=== PATIENT | female | born 1965 | race Hispanic/Latino ===

== ENCOUNTER 2017-06-09 08:38 | Observation (INO) | payer OTHER ==
--- NOTE | 2017-06-09 08:57 | ED PDOC ---
Arrival/HPI - General Chief Complaint: Chest Pain Time Seen by Provider: 06/09/17 08:52 Historian: Patient - History of Present Illness Narrative History of Present Illness (Text): 06/09/17 08:57 A 51 year old female, whose past medical history includes gallstones, presents to the emergency department complaining of intermittent upper abdominal pain for 1 week. Patient reports her pain worsened this morning causing her to come in for further evaluation. Patient describes her pain as a stretching sensation , worsened after eating. Patient notes associated diarrhea and abdominal bloating x few weeks. Patient states this pain would radiate to her lower chest from her mid abdomen today. Denies upper back pain. States pain will also radiate to right back at times. Time/Duration: 1 week Symptom Course: Worsening (this morning) Quality: Other (stretching) Context: Home Past Medical History - Infectious Disease Hx of Infectious Diseases: None - Tetanus Immunization Tetanus Immunization: Unknown - Past Medical History Past Medical History: No Previous - Musculoskeletal/Rheumatological Hx Arthritis: Yes Other/Comment: myalgia - Psychiatric Hx Depression: No Hx Emotional Abuse: No Hx Physical Abuse: No Hx Substance Use: No - Past Surgical History Past Surgical History: No Previous - Surgical History Hx Section: Yes (x3) - Anesthesia Hx Anesthesia: Yes Hx Anesthesia Reactions: No Hx Malignant Hyperthermia: No - Suicidal Assessment Feels Threatened In Home Enviroment: No Family/Social History - Physician Review Nursing Documentation Reviewed: Yes Family/Social History: No Known Family HX Smoking Status: Light Smoker < 10 Cigarettes Daily Hx Alcohol Use: Yes Frequency of alcohol use: Socially Hx Substance Use: No Hx Substance Use Treatment: No Allergies/Home Meds Allergies/Adverse Reactions: Allergies codeine Allergy (Verified 06/09/17 08:50) SWELLING Sulfa (Sulfonamide Antibiotics) Allergy (Verified 06/09/17 08:50) ANAPHYLAXIS Review of Systems - Review of Systems Constitutional: absent: Fatigue, Fevers, Night Sweats Eyes: absent: Vision Changes ENT: absent: Hearing Changes Respiratory: absent: SOB, Cough Cardiovascular: Chest Pain. absent: Palpitations, Edema, Calf Pain, MORFIN Gastrointestinal: Abdominal Pain, Diarrhea, Nausea, Appetite Changes, Other ( abdominal bloating). absent: Vomiting Genitourinary Female: absent: Dysuria, Frequency Musculoskeletal: Back Pain (right sided, not upper or mid) Skin: absent: Rash Neurological: absent: Headache, Dizziness, Focal Weakness Endocrine: absent: Polyuria, Polydipsia Hemo/Lymphatic: absent: Easy Bleeding Psychiatric: absent: Depression Physical Exam - Physical Exam Narrative Physical Exam (Text): Head: Atraumatic. Normocephalic. Eyes: PERRL. EOMI. Conjunctivae are not pale. ENT: Mucous membranes are moist and intact. Oropharynx is clear and symmetric. Neck: Supple. Full ROM. No JVD. No lymphadenopathy. Neck is supple. Cardiovascular: Regular rate. Regular rhythm. No murmurs, rubs, or gallops. Distal pulses are 2+ and symmetric. Radial pulses are equal and symmetric. Pulmonary/Chest: No evidence of respiratory distress. Clear to auscultation bilaterally. No wheezing, rales or rhonchi. Abdominal: Soft butmild distended. Diffuse upper abdominal pain with focal epigastric and RUQ tenderness. No rebound, guarding, or rigidity. No organomegaly. Good bowel sounds. Rectal: no gross bleeding Back: No CVA tenderness. No midline tenderness. No palpable back pain. Extremities: No edema. No cyanosis. No clubbing. Full range of motion in all extremities. No calf tenderness. Skin: Skin is warm and dry. No petechiae. Neurological: Alert, awake, and oriented to person, place, time, and situation. Normal speech. Motor and sensory exam intact. Psychiatric: Good eye contact. Normal interaction, affect, and behavior. Vital Signs Reviewed: Yes Vital Signs Temp Pulse Resp BP Pulse Ox 06/09/17 11:50 77 17 144/66 97 06/09/17 10:56 85 18 133/110 H 98 06/09/17 08:45 98.6 F 86 19 186/95 H 100 Temperature: Afebrile Blood Pressure: Hypertensive Pulse: Regular Respiratory Rate: Normal Appearance: Positive for: Non-Toxic, Uncomfortable Pain Distress: Moderate Mental Status: Positive for: Alert and Oriented X 3 Medical Decision Making ED Course and Treatment: 06/09/17 08:57 Impression: A 51 year old female with upper abdominal pain. Patient notes abdominal bloating and diarrhea. Differential Diagnosis included but are not limited to: Biliary colic vs. Bowel obstruction vs. Colitis vs. CAD Plan: -- Abdominal ultrasound -- Chest xray -- EKG -- Labs -- Blood and Urine culture -- Urinalysis -- Morphine, Pepcid, IV fluids and Zofran -- Reassess and disposition Progress Notes: Patient states she has had history of gallstones in past. On exam she has clearly palpable epigastric pain, RUQ pain. No lower quadrant pain is noted. She reports some loose stools. She states pain radiated to chest, but no intrascapular back pain, upper extremity pulses equal. Given persistent pain in abdomen, surgery consulted for ddx of biliary colic, gi pathology. Pain improved with morphine. EKG unremarkable. Initial card isos unremarkable. Patient on re-evaluation denies chest pain or sob. She states pain is not worse with exertion or activity. Report Date : 06/09/2017 10:14:11 Procedure: Chest xray Dictator : Elida Short IMPRESSION: Cardiomegaly with borderline prominent central pulmonary vascular congestion. No pleural effusions. Report Date : 06/09/2017 11:29:05 Procedure: Abdominal ultrasound Dictator : Orville Calderón MD IMPRESSION: Hepatomegaly, hepatic steatosis. No acute findings. Given persistent pain, ct abdomen ordered and reviewed. No free air or appendicitis noted. Pain continues to be palpable in mid abdomen, epigastric region. Dr. Oleary from [facility] consulted due to persistent pain. BP improved after medication. I feel palpable nature of pain associated with bloating is atypical for cardiac etiology, although d/w family and patient cannot exclude atypical cardiac presentation and will admit to telemetry bed for serial exams, monitoring, serial enzymes. Case accepted by hospitalist, accepts admission. 06/09/17 18:35 - Lab Interpretations Microbiology Results: Microbiology Results 06/09/17 09:31 Blood Blood Culture - Preliminary NO GROWTH AFTER 48 HOURS 06/09/17 09:01 Blood Blood Culture - Preliminary NO GROWTH AFTER 48 HOURS 06/09/17 09:10 Urine Urine Culture - Final Gram Negative Flex Lab Results: 06/09/17 09:01 06/09/17 09:01 Lab Results 06/09/17 09:10: Urine Color Yellow, Urine Appearance Clear, Urine pH 6.0, Ur Specific [place] 1.025, Urine Protein 100 H, Urine Glucose (UA) Negative, Urine Ketones Trace H, Urine Blood Large H, Urine Nitrate Negative, Urine Bilirubin Negative, Urine Urobilinogen 0.2, Ur Leukocyte Esterase Negative, Urine RBC 25 - 30, Urine WBC 1 - 3, Ur Epithelial Cells Many, Urine Bacteria Large, Urine Other Uyeast, Urine HCG, Qual Negative 06/09/17 09:01: Sodium 141, Chloride 106, Potassium 4.2, Carbon Dioxide 24, Anion Gap 14, BUN 18, Creatinine 0.7, Est GFR ( Amer) > 60, Est GFR (Non- Af Amer) > 60, Random Glucose 160 H, Calcium 8.8, Total Bilirubin 0.3, AST 109 H , ALT 132 H, Alkaline Phosphatase 80, Lactate Dehydrogenase 709 H, Total Creatine Kinase 183, Troponin I < 0.01, Total Protein 7.6, Albumin 4.3, Globulin 3.3, Albumin/Globulin Ratio 1.3, Amylase 36, Lipase 145 06/09/17 09:01: pO2 167 H, VBG pH 7.38, VBG pCO2 43.0, VBG HCO3 25.4, VBG Total CO2 26.7, VBG O2 Sat (Calc) 99.4 H, VBG Base Excess 0.0, VBG Potassium 4.2, Sodium 137.0, Chloride 109.0 H, Glucose 164 H, Lactate 1.4, FiO2 21.0, Venous Blood Potassium 4.2 06/09/17 09:01: PT 11.0, INR 1.00, APTT 28.3 06/09/17 09:01: WBC 7.6 D, RBC 4.32, Hgb 13.8, Hct 41.0, MCV 94.9, MCH 31.9, MCHC 33.7, RDW 12.7, Plt Count 187, MPV 12.1 H, Gran % 68.8 H, Lymph % (Auto) 22.4, [place] % (Auto) 5.8, Eos % (Auto) 2.5, Baso % (Auto) 0.5, Gran # 5.21, Lymph # 1.7, [place] # 0.4, Eos # 0.2, Baso # 0.04 - RAD Interpretation Radiology Orders: 06/09/17 09:00 CHEST PORTABLE [RAD] Stat ABDOMEN COMPLETE [US] Stat 06/09/17 11:39 ABD & PELVIS IV CONTRAST ONLY [CT] Stat - Medication Orders Current Medication Orders: Discontinued Medications Alprazolam (Xanax) 0.5 mg PO TID PRN; Protocol PRN Reason: Anxiety Last Admin: 06/10/17 08:57 Dose: 0.5 mg Behavioural Document 06/10/17 08:57 (Rec: 06/10/17 08:57 [id number]) Maintenance Maintenance Dose Yes Behavior Behavior for Medication: Anxiety Re-Assess: Reassess Psych Meds Document 06/10/17 09:57 (Rec: 06/10/17 10:27 [id number]) Reassess Psych Med Effective Famotidine (Pepcid) 20 mg IVP STAT STA Stop: 06/09/17 09:03 Last Admin: 06/09/17 09:25 Dose: 20 mg IVP Administration Document 06/09/17 09:25 MR (Rec: 06/09/17 09:25 MR [id number]) Charges for Administration # of IVP Administrations 1 Sodium Chloride (Sodium Chloride 0.9%) 500 mls @ 1,000 mls/hr IV .Q30M STA Stop: 06/09/17 09:31 Last Admin: 06/09/17 09:26 Dose: 1,000 mls/hr eMAR Start Stop Document 06/09/17 09:26 MR (Rec: 06/09/17 09:26 MR [id number]) Intravenous Solution Start Date 06/09/17 Start Time 09:26 End Date 06/09/17 End time 09:56 Total Infusion Time 30 Ceftriaxone Sodium (Rocephin 1 Gram Ivpb) 1 gm in 100 mls @ 200 mls/hr IVPB ONCE STA PRN Reason: Protocol Stop: 06/09/17 12:10 Last Admin: 06/09/17 12:11 Dose: 200 mls/hr eMAR Start Stop Document 06/09/17 12:11 ARIELA (Rec: 06/09/17 12:11 REED [id number]) Intravenous Solution Start Date 06/09/17 Start Time 12:11 Metronidazole (Flagyl) 500 mg in 100 mls @ 100 mls/hr IVPB STAT STA PRN Reason: Protocol Stop: 06/09/17 12:40 Last Admin: 06/09/17 14:10 Dose: 100 mls/hr eMAR Start Stop Document 06/09/17 14:10 RT (Rec: 06/09/17 14:10 RT [id number]) Intravenous Solution Start Date 06/09/17 Start Time 14:10 End Date 06/09/17 End time 15:10 Total Infusion Time 60 Morphine Sulfate (Morphine) 2 mg IVP STAT STA Stop: 06/09/17 09:03 Last Admin: 06/09/17 09:25 Dose: 2 mg MAR Pain Assessment Document 06/09/17 09:25 MR (Rec: 06/09/17 09:26 MR [id number]) Pain Reassessment Is this a pain reassessment? No Sleep Is patient sleeping during reassessment? No Presence of Pain Presence of Pain Yes Pain Scale Used Pain Scale Used Numeric Location Pain Location Body Site Chest Abdomen Description Description Constant Intensity of Pain at present 8 Pain Behavior Facial Grimacing Alleviating Factors/Management Medication Techniques Alleviating Factors Medication IVP Administration Document 06/09/17 09:25 (Rec: 06/09/17 09:26 MR [id number]) Charges for Administration # of IVP Administrations 1 Morphine Sulfate (Morphine) 4 mg IVP STAT STA Stop: 06/09/17 09:45 Last Admin: 06/09/17 10:14 Dose: 4 mg MAR Pain Assessment Document 06/09/17 10:14 MR (Rec: 06/09/17 10:14 MR [id number]) Pain Reassessment Is this a pain reassessment? Yes Sleep Is patient sleeping during reassessment? No Presence of Pain Presence of Pain Yes Pain Scale Used Pain Scale Used Numeric Location Upper or Lower Upper Pain Location Body Site Abdomen Description Description Constant Intensity of Pain at present 8 Pain Behavior Facial Grimacing IVP Administration Document 06/09/17 10:14 MR (Rec: 06/09/17 10:14 MR [id number]) Charges for Administration # of IVP Administrations 1 Morphine Sulfate (Morphine) 2 mg IVP STAT STA Stop: 06/09/17 11:54 Last Admin: 06/09/17 12:15 Dose: 2 mg MAR Pain Assessment Document 06/09/17 12:15 ARIELA (Rec: 06/09/17 13:06 ARIELA CADECANDIAPC ) Pain Reassessment Is this a pain reassessment? Yes Sleep Is patient sleeping during reassessment? No Presence of Pain Presence of Pain Yes IVP Administration Document 06/09/17 12:15 ARILEA (Rec: 06/09/17 13:06 ARIELA CADECANDIAPC ) Charges for Administration # of IVP Administrations 1 Morphine Sulfate (Morphine) 2 mg IVP Q6H PRN PRN Reason: Pain, moderate (4-7) Last Admin: 06/09/17 23:56 Dose: 2 mg MAR Pain Assessment Document 06/09/17 23:56 SBO (Rec: 06/09/17 23:57 [id number]) Pain Reassessment Is this a pain reassessment? Yes Sleep Is patient sleeping during reassessment? No Presence of Pain Presence of Pain Yes Pain Scale Used Pain Scale Used Numeric Location Pain Location Body Drying And Winding Supervisor Abdomen Description Description Intermittent Intensity of Pain at present 10 Pain Behavior Irritability Alleviating Factors/Management Medication Techniques Alleviating Factors Medication IVP Administration Document 06/09/17 23:56 SBO (Rec: 06/09/17 23:57 SBO [id number]) Charges for Administration # of IVP Administrations 1 Re-Assess: MAR Pain Assessment Document 06/10/17 00:56 SB (Rec: 06/10/17 04:26 SBO [id number]) Pain Reassessment Is this a pain reassessment? Yes Sleep Is patient sleeping during reassessment? Yes Naproxen (Anaprox Ds) 550 mg PO BID PRN PRN Reason: abdominal pain Last Admin: 06/10/17 10:35 Dose: 550 mg Ondansetron HCl (Zofran Inj) 4 mg IVP ONCE ONE Stop: 06/09/17 09:03 Last Admin: 06/09/17 09:25 Dose: 4 mg IVP Administration Document 06/09/17 09:25 MR (Rec: 06/09/17 09:25 MR [id number]) Charges for Administration # of IVP Administrations 1 Ondansetron HCl (Zofran Inj) 4 mg IVP Q6 PRN PRN Reason: Nausea/Vomiting Last Admin: 06/10/17 08:00 Dose: 4 mg IVP Administration Document 06/10/17 08:00 (Rec: 06/10/17 08:01 [id number]) Charges for Administration # of IVP Administrations 1 Pantoprazole Sodium (Protonix Inj) 40 mg IVP DAILY POLO Last Admin: 06/10/17 10:30 Dose: 40 mg IVP Administration Document 06/10/17 10:30 (Rec: 06/10/17 10:30 [id number]) Charges for Administration # of IVP Administrations 1 Pneumococcal Polyvalent Vaccine (Pneumovax 23 Vaccine) 0.5 ml IM .ONCE ONE Stop: 06/09/17 18:13 - Scribe Statement The provider has reviewed the documentation as recorded by the Scribe Amina Stanton Provider Scribe Attestation: All medical record entries made by the Scribe were at my direction and personally dictated by me. I have reviewed the chart and agree that the record accurately reflects my personal performance of the history, physical exam, medical decision making, and the department course for this patient. I have also personally directed, reviewed, and agree with the discharge instructions and disposition. Disposition/Present on Arrival - Present on Arrival Any Indicators Present on Arrival: No History of DVT/PE: No History of Uncontrolled Diabetes: No Urinary Catheter: No History of Decub. Ulcer: No History Surgical Site Infection Following: None - Disposition Have Diagnosis and Disposition been Completed?: Yes Diagnosis: Abdominal pain, Chest pain Disposition: HOSPITALIZED Disposition Time: 11:00 Patient Plan: Admission, Telemetry Condition: FAIR
[2017-06-09] MEDS ORDERED: Sodium Chloride 0.9% 500 ML IV STA (09:02)
[2017-06-09] MEDS ORDERED: Morphine 2 mg/ml ISec IVP STA ×2 (09:02→11:53)
[2017-06-09 09:28] LABS: URINE BILIRUBIN NEGATIVE (NEGATIVE); URINE BLOOD LARGE (NEGATIVE); URINE GLUCOSE (UA) NEGATIVE (NEGATIVE); URINE KETONE TRACE mg/dL (NEGATIVE); URINE LEUKOCYTE ESTERASE NEGATIVE Leu/uL (NEGATIVE); URINE PROTEIN 100 mg/dL (<30 mg/dL); URINE UROBILINOGEN 0.2 E.U./dL (<1 E.U./dL)
[2017-06-09 09:30] LABS: URINE APPEARANCE CLEAR (CLEAR); URINE COLOR YELLOW (YELLOW)
[2017-06-09 09:36] LABS: BASO # 0.04 K/mm3 (0.0-2.0); BASO % 0.5 % (0.0-3.0); EOS # 0.2 (0.0-0.7); EOS % 2.5 % (1.5-5.0); GRAN # 5.21 (1.4-6.5); GRAN % 68.8 % (50.0-68.0); LYMPH # 1.7 (1.2-3.4); LYMPH % 22.4 % (22.0-35.0); MEAN CELL VOLUME 94.9 fl (80.0-105.0); MEAN CORPUSCULAR HEMOGLOBIN 31.9 pg (25.0-35.0); MEAN CORPUSCULAR HGB CONC 33.7 g/dl (31.0-37.0); MEAN PLATELET VOLUME 12.1 fl (7.0-11.0); MONO # 0.4 (0.1-0.6); MONO % 5.8 % (1.0-6.0); RED CELL DISTRIBUTION WIDTH 12.7 % (11.5-14.5); WHITE BLOOD COUNT 7.6 10^3/ul (4.5-11.0)
[2017-06-09 09:37] LABS: VENOUS BLOOD PH 7.38 (7.32-7.43)
[2017-06-09 09:42] LABS: URINE BACTERIA LARGE (NEG); URINE EPITHELIAL CELLS MANY /hpf (0-5); URINE RBC 25 - 30 /hpf (0-2)
[2017-06-09] MEDS ORDERED: Morphine 4 mg/ml ISec IVP STA (09:44)
[2017-06-09 09:46] LABS: PARTIAL THROMBOPLASTIN TIME 28.3 Seconds (25.1-36.5)
[2017-06-09 09:54] LABS: ALB/GLOB RATIO 1.3 (1.1-1.8); ALKALINE PHOSPHATASE 80 U/L (38-126); ALT/SGPT 132 U/L (7-56); AMYLASE 36 U/L (35-125); AST/SGOT 109 U/L (14-36); BILIRUBIN,TOTAL 0.3 mg/dL (0.2-1.3); BLOOD UREA NITROGEN 18 mg/dL (7-21); CALCIUM 8.8 mg/dL (8.4-10.5); CARBON DIOXIDE 24 mmol/L (21-33); CHLORIDE 106 mmol/L (98-107); GFR AFRICAN-AMERICAN > 60; GLUCOSE,RANDOM 160 mg/dL (70-110); LIPASE 145 U/L (23-300); POTASSIUM 4.2 mmol/L (3.6-5.0); SODIUM 141 mmol/L (132-148); TOTAL PROTEIN 7.6 g/dL (5.8-8.3)
[2017-06-09 09:57] LABS: TROPONIN I < 0.01 ng/mL
--- NOTE | 2017-06-09 10:17 | RAD ---
HISTORY: chest pain COMPARISON: No prior. FINDINGS: LUNGS: No active pulmonary disease. PLEURA: No significant pleural effusion identified, no pneumothorax apparent. CARDIOVASCULAR: Mild cardiomegaly. Central pulmonary vasculature borderline prominent OSSEOUS STRUCTURES: Bilateral shoulder arthrosis VISUALIZED UPPER ABDOMEN: Normal. OTHER FINDINGS: None. IMPRESSION: Cardiomegaly with borderline prominent central pulmonary vascular congestion no pleural effusions
--- NOTE | 2017-06-09 11:30 | US ---
HISTORY: upper abdominal pain COMPARISON: None. TECHNIQUE: Sonographic evaluation of the abdomen. FINDINGS: LIVER: Measures 22.8 cm. Hepatopedal blood flow. Fatty infiltration manifest ultrasonographically as increased echogenicity of the liver parenchyma. No mass. No intrahepatic bile duct dilatation. GALLBLADDER: Unremarkable. No gallstones. COMMON BILE DUCT: Measures 6.3 mm. No stones. No dilatation. PANCREAS: Unremarkable as visualized. No mass. No ductal dilatation. RIGHT KIDNEY: Measures 5.2 x 11.9cm. Normal echogenicity. No calculus, mass, or hydronephrosis. LEFT KIDNEY: Measures 5.1 x 11.8cm. Normal echogenicity. No calculus, mass, or hydronephrosis. SPLEEN: Normal in size and contour. No mass. AORTA: No aneurysmal dilatation. IVC: Unremarkable. OTHER FINDINGS: None. IMPRESSION: Hepatomegaly, hepatic steatosis. No acute findings.
[2017-06-09] MEDS ORDERED: cefTRIAXone 1 gm 1 GM/100 ML BAG IVPB STA (11:41)
[2017-06-09] MEDS ORDERED: metroNIDAZOLE IV 500 mg/100 ml 500 MG/100 ML BAG IVPB STA (11:41)
[2017-06-09] MEDS ORDERED: Iohexol 350 MG/100 ML VIAL ONE (11:49)
--- NOTE | 2017-06-09 12:53 | CP.PCM.CON ---
<Carlita Cobian - Last Filed: 06/09/17 17:18> History of Present Illness - History of Present Illness History of Present Illness: Surgery 51 F w PMH of cholelithiasis came w RUQ and epigastric pain started 3 weeks ago. Intermittent Pain goes to her R back and gotten worse. Denies F/C/N/V. Reports diarrhea. Denies recent travel, sick contact, recent antibiotic use. Pt had these symptoms in the past. This is the third episodes. Denies any bleeding disorder, issues with anesthesia. US shows gallbladder sludge. and elevated LFT. Surgery is consulted to evaluate for cholelithiasis PMH : biliary colic PSH: C-secton x3. Meds none All: sulfa, codein Past Patient History - Infectious Disease Hx of Infectious Diseases: None - Tetanus Immunizations Tetanus Immunization: Unknown - Past Social History Smoking Status: Light Smoker < 10 Cigarettes Daily - MUSCULOSKELETAL/RHEUMATOLOGICAL Hx Arthritis: Yes Other/Comment: myalgia - PSYCHIATRIC Hx Depression: No Hx Emotional Abuse: No Hx Physical Abuse: No Hx Substance Use: No - SURGICAL HISTORY Hx Section: Yes (x3) - ANESTHESIA Hx Anesthesia: Yes Hx Anesthesia Reactions: No Hx Malignant Hyperthermia: No Meds Allergies/Adverse Reactions: Allergies Allergy/AdvReac Type Severity Reaction Status Date / Time codeine Allergy SWELLING Verified 06/09/17 08:50 Sulfa (Sulfonamide Allergy ANAPHYLAXIS Verified 06/09/17 08:50 Antibiotics) Physical Exam - Constitutional Appears: No Acute Distress - Head Exam Head Exam: ATRAUMATIC, NORMAL INSPECTION, NORMOCEPHALIC - Eye Exam Eye Exam: EOMI, Normal appearance, PERRL Pupil Exam: NORMAL ACCOMODATION, PERRL - ENT Exam ENT Exam: Mucous Membranes Moist, Normal Exam - Neck Exam Neck exam: Positive for: Normal Inspection - Respiratory Exam Respiratory Exam: Clear to Auscultation Bilateral, NORMAL BREATHING PATTERN - Cardiovascular Exam Cardiovascular Exam: REGULAR RHYTHM - GI/Abdominal Exam GI & Abdominal Exam: Normal Bowel Sounds, Soft, Tenderness. absent: Distended, Firm, Guarding, Hernia Additional comments: RUQ TTP - Extremities Exam Extremities exam: Positive for: normal inspection - Back Exam Back exam: NORMAL INSPECTION - Neurological Exam Neurological exam: Alert, CN II-XII Intact, Normal Gait, Oriented x3, Reflexes Normal - Psychiatric Exam Psychiatric exam: Normal Affect, Normal Mood - Skin Skin Exam: Dry, Intact, Normal Color, Warm Results - Vital Signs Recent Vital Signs: Last Vital Signs Temp 98.6 F 06/09/17 08:45 Pulse 77 06/09/17 11:50 Resp 17 06/09/17 11:50 BP 144/66 06/09/17 11:50 Pulse Ox 97 06/09/17 11:50 - Labs Result Diagrams: 06/09/17 09:01 06/09/17 09:01 Assessment & Plan - Assessment and Plan (Free Text) Assessment: Biliary colic v symptomatic cholelithiasis -f/u HIDA -IVF -Pain control DW Dr. Oleary <James Oleary - Last Filed: 06/10/17 10:58> Meds - Medications Medications: Current Medications Alprazolam (Xanax) 0.5 mg PO TID PRN; Protocol PRN Reason: Anxiety Last Admin: 06/10/17 08:57 Dose: 0.5 mg Morphine Sulfate (Morphine) 2 mg IVP Q6H PRN PRN Reason: Pain, moderate (4-7) Last Admin: 06/09/17 23:56 Dose: 2 mg Naproxen (Anaprox Ds) 550 mg PO BID PRN PRN Reason: abdominal pain Last Admin: 06/10/17 10:35 Dose: 550 mg Ondansetron HCl (Zofran Inj) 4 mg IVP Q6 PRN PRN Reason: Nausea/Vomiting Last Admin: 06/10/17 08:00 Dose: 4 mg Pantoprazole Sodium (Protonix Inj) 40 mg IVP DAILY POLO Last Admin: 06/10/17 10:30 Dose: 40 mg Results - Vital Signs Recent Vital Signs: Last Vital Signs Temp 97.9 F 06/10/17 06:00 Pulse 72 06/10/17 06:00 Resp 20 06/10/17 06:00 BP 148/94 H 06/10/17 06:00 Pulse Ox 98 06/10/17 06:00 - Labs Result Diagrams: 06/10/17 05:30 06/10/17 05:30 Labs: Laboratory Results - last 24 hr 06/09/17 06/09/17 06/09/17 15:25 15:25 15:44 WBC RBC Hgb Hct MCV MCH MCHC RDW Plt Count MPV Gran % Lymph % (Auto) [place] % (Auto) Eos % (Auto) Baso % (Auto) Gran # Lymph # [place] # Eos # Baso # Sodium Potassium Chloride Carbon Dioxide Anion Gap BUN Creatinine Est GFR ( Amer) Est GFR (Non-Af Amer) Random Glucose Calcium Total Bilirubin AST ALT Alkaline Phosphatase Lactate Dehydrogenase 617 Total Creatine Kinase 175 Troponin I < 0.01 Total Protein Albumin Globulin Albumin/Globulin Ratio Triglycerides Cholesterol LDL Cholesterol Direct HDL Cholesterol Urine Opiates Screen Positive H Urine Methadone Screen Negative Ur Barbiturates Screen Negative Ur Phencyclidine Scrn Negative Ur Amphetamines Screen Negative U Benzodiazepines Scrn Negative U Oth Cocaine Metabols Negative U Cannabinoids Screen Negative Alcohol, Quantitative Hepatitis A IgM Ab Negative Hep Bs Antigen Negative Hep B Core IgM Ab Negative Hepatitis C Antibody Negative 06/09/17 06/09/17 06/10/17 21:25 21:25 05:30 WBC 7.6 RBC 3.93 Hgb 12.2 Hct 37.8 MCV 96.2 MCH 31.0 MCHC 32.3 RDW 12.8 Plt Count 163 MPV 12.0 H Gran % 62.5 Lymph % (Auto) 28.3 [place] % (Auto) 5.9 Eos % (Auto) 2.9 Baso % (Auto) 0.4 Gran # 4.75 Lymph # 2.2 [place] # 0.5 Eos # 0.2 Baso # 0.03 Sodium Potassium Chloride Carbon Dioxide Anion Gap BUN Creatinine Est GFR ( Amer) Est GFR (Non-Af Amer) Random Glucose Calcium Total Bilirubin AST ALT Alkaline Phosphatase Lactate Dehydrogenase 598 Total Creatine Kinase 152 Troponin I < 0.01 Total Protein Albumin Globulin Albumin/Globulin Ratio Triglycerides Cholesterol LDL Cholesterol Direct HDL Cholesterol Urine Opiates Screen Urine Methadone Screen Ur Barbiturates Screen Ur Phencyclidine Scrn Ur Amphetamines Screen U Benzodiazepines Scrn U Oth Cocaine Metabols U Cannabinoids Screen Alcohol, Quantitative < 10 Hepatitis A IgM Ab Hep Bs Antigen Hep B Core IgM Ab Hepatitis C Antibody 06/10/17 05:30 WBC RBC Hgb Hct MCV MCH MCHC RDW Plt Count MPV Gran % Lymph % (Auto) [place] % (Auto) Eos % (Auto) Baso % (Auto) Gran # Lymph # [place] # Eos # Baso # Sodium 138 Potassium 4.0 Chloride 104 Carbon Dioxide 27 Anion Gap 11 BUN 13 Creatinine 0.6 L Est GFR ( Amer) > 60 Est GFR (Non-Af Amer) > 60 Random Glucose 126 H Calcium 8.2 L Total Bilirubin 0.4 AST 107 H ALT 114 H Alkaline Phosphatase 63 Lactate Dehydrogenase Total Creatine Kinase Troponin I Total Protein 6.6 Albumin 3.6 Globulin 3.0 Albumin/Globulin Ratio 1.2 Triglycerides 221 H Cholesterol 249 H LDL Cholesterol Direct 192 H HDL Cholesterol 40 Urine Opiates Screen Urine Methadone Screen Ur Barbiturates Screen Ur Phencyclidine Scrn Ur Amphetamines Screen U Benzodiazepines Scrn U Oth Cocaine Metabols U Cannabinoids Screen Alcohol, Quantitative Hepatitis A IgM Ab Hep Bs Antigen Hep B Core IgM Ab Hepatitis C Antibody Assessment & Plan - Assessment and Plan (Free Text) Assessment: DX: NOT Cholecystitis/NO Cholelithiasis HIDA Early GB Viz Hepatitis profile Negative Etiology of RUQ tenderness unclear Syed: GI Evaluation with EGD-?EUS Holding off surgery now This consultation done under my direct supervision Anjel Oleary MD FACS
--- NOTE | 2017-06-09 12:55 | CT ---
PROCEDURE: CT Abdomen and Pelvis with contrast HISTORY: severe right sided abdominal pain COMPARISON: June 07, 2017. Abdominal ultrasound TECHNIQUE: Contrast dose: 100 cc Omnipaque 350 Radiation dose: Total exam DLP = 1022.70 mGy-cm. This CT exam was performed using one or more of the following dose reduction techniques: Automated exposure control, adjustment of the mA and/or kV according to patient size, and/or use of iterative reconstruction technique. FINDINGS: LOWER THORAX: Unremarkable. LIVER: Hepatomegaly, hepatic steatosis. No focal hepatic masses. GALLBLADDER AND BILE DUCTS: Unremarkable. PANCREAS: Unremarkable. No gross lesion or ductal dilatation. SPLEEN: Unremarkable. ADRENALS: Unremarkable. No mass. KIDNEYS AND URETERS: Unremarkable. No hydronephrosis. No solid mass. VASCULATURE: Unremarkable. No aortic aneurysm. BOWEL: Severe diverticular disease affecting the sigmoid and descending colon in addition to the right hemicolon. Transverse colon is affected to a lesser degree. APPENDIX: Normal appendix. PERITONEUM: Unremarkable. No free fluid. No free air. LYMPH NODES: Unremarkable. No enlarged lymph nodes. BLADDER: Unremarkable. REPRODUCTIVE: Unremarkable. BONES: No acute fracture. Multilevel degenerative changes, grade 1 anterolisthesis L5-S1. OTHER FINDINGS: None. IMPRESSION: No acute findings related to/accounting for the clinical presentation. Severe diverticular disease.
--- NOTE | 2017-06-09 15:31 | CP.PCM.HP ---
<Nadine Bautista - Last Filed: 06/09/17 15:37> History of Present Illness - History of Present Illness History of Present Illness: PGY-2 h&p for hospitalist service 51 year old female with past medical history of gallstones and smoking, presents to the emergency department complaining of intermittent right upper abdominal pain for 1 week. Patient describes the pain as sharp, needle like, radiating to the chest and right side. She states that her pain was worsen this morning causing her to come in to the ED. She states that she does not notice a pattern and does not believe it is associated with eating. She report nausea but no vomiting. She also reports some diarrhea and abdominal bloating x few weeks. 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 Patient does not take any medications at home, she was given lyrica in the past for neuropathy but has not been taking it due to insurance. Patient denies any fever, chills, vomiting, shortness of breath or any other complaints. She reports previous episode of gallstone several years back, stating that she does not recall any intervention. PMH: gallstone PSH: social: smokes few cigarettes daily, social alcohol use, denies illicit drug use. Works in [employer]: diabetes allergy: codeine, sulfa Present on Admission - Present on Admission Any Indicators Present on Admission: No Review of Systems - Constitutional Constitutional: absent: Fever, Headache, Weakness - Cardiovascular Cardiovascular: Chest Pain. absent: Palpitations, Syncope - Respiratory Respiratory: absent: Cough, Dyspnea - Gastrointestinal Gastrointestinal: Abdominal Pain, Diarrhea, Nausea. absent: Vomiting - Musculoskeletal Musculoskeletal: absent: Back Pain, Myalgias, Neck Pain - Neurological Neurological: absent: Focal Weakness, Headaches, Syncope - Psychiatric Psychiatric: Anxiety. absent: Depression, Suicidal Ideation Past Patient History - Infectious Disease Hx of Infectious Diseases: None - Tetanus Immunizations Tetanus Immunization: Unknown - Past Social History Smoking Status: Light Smoker < 10 Cigarettes Daily - MUSCULOSKELETAL/RHEUMATOLOGICAL Hx Arthritis: Yes Other/Comment: myalgia - PSYCHIATRIC Hx Depression: No Hx Emotional Abuse: No Hx Physical Abuse: No Hx Substance Use: No - SURGICAL HISTORY Hx Section: Yes (x3) - ANESTHESIA Hx Anesthesia: Yes Hx Anesthesia Reactions: No Hx Malignant Hyperthermia: No Meds Allergies/Adverse Reactions: Allergies Allergy/AdvReac Type Severity Reaction Status Date / Time codeine Allergy SWELLING Verified 06/09/17 08:50 Sulfa (Sulfonamide Allergy ANAPHYLAXIS Verified 06/09/17 08:50 Antibiotics) Physical Exam - Constitutional Appears: No Acute Distress - Head Exam Head Exam: ATRAUMATIC, NORMAL INSPECTION, NORMOCEPHALIC - Eye Exam Eye Exam: EOMI, Normal appearance - ENT Exam ENT Exam: Mucous Membranes Moist - Respiratory Exam Respiratory Exam: Clear to Auscultation Bilateral, NORMAL BREATHING PATTERN. absent: Rhonchi, Wheezes, Respiratory Distress - Cardiovascular Exam Cardiovascular Exam: REGULAR RHYTHM, +S1, +S2. absent: Tachycardia, Systolic Murmur - GI/Abdominal Exam GI & Abdominal Exam: Normal Bowel Sounds, Tenderness (ruq). absent: Distended - Neurological Exam Neurological exam: Alert, CN II-XII Intact, Oriented x3, Reflexes Normal - Psychiatric Exam Psychiatric exam: Anxious - Skin Skin Exam: Dry, Intact, Normal Color, Warm Results - Vital Signs Recent Vital Signs: Last Vital Signs Temp 98.6 F 06/09/17 08:45 Pulse 77 06/09/17 11:50 Resp 17 06/09/17 11:50 BP 144/66 06/09/17 11:50 Pulse Ox 97 06/09/17 11:50 - Labs Result Diagrams: 06/09/17 09:01 06/09/17 09:01 Assessment & Plan - Assessment and Plan (Free Text) Assessment: 51 year old female with past medical history of gallstones and smoking, presents to the emergency department complaining of intermittent upper right abdominal, radiating to chest and ride side 1. abd pain - possibly due to cholecystitis vs. ulcer, rule out ACS - abd US did not show any gall stones, hepatomegaly - CT abd showed severe divericular disease - LFT's were elevated, lipase and amylase within normal limits - troponins negative x1 - ordered hepatits panel - repeat LFTs - trend troponins - lipid panel - morphine for pain - will hold antibiotics for know, no fever, or leukocytosis - liquid diet - avoid hepatic toxic medications - GI consulted - surgery consulted 2. anxious - xanax prn - social media manager consult - offered psych consult, patient refused case discussed and reviewed with attending, Dr. Sewell <Vashti Sewell - Last Filed: 06/09/17 16:21> Results - Vital Signs Recent Vital Signs: Last Vital Signs Temp 98.6 F 06/09/17 08:45 Pulse 77 06/09/17 11:50 Resp 17 06/09/17 11:50 BP 144/66 06/09/17 11:50 Pulse Ox 97 06/09/17 11:50 - Labs Result Diagrams: 06/09/17 09:01 06/09/17 09:01 Labs: Laboratory Results - last 24 hr 06/09/17 06/09/17 15:25 15:44 Lactate Dehydrogenase 617 Total Creatine Kinase 175 Troponin I < 0.01 Urine Methadone Screen Negative Ur Barbiturates Screen Negative Ur Phencyclidine Scrn Negative Ur Amphetamines Screen Negative U Benzodiazepines Scrn Negative U Oth Cocaine Metabols Negative U Cannabinoids Screen Negative Attending/Attestation - Attestation I have personally seen and examined this patient.: Yes I have fully participated in the care of the patient.: Yes I have reviewed all pertinent clinical information: Yes Notes (Text): 06/09/17 16:15 51 year old female who presents with complaint of RUQ and epigastric pain radiating to her chest. R/o biliary colic vs cholecystitis vs peptic ulcer disease vs atypical chest pain. US abdomen showed hepatomegaly without gallstones. CT abd/pelvis showed severe diverticular disease. LFTs are elevated. Amylase/lipase and initial troponin is negative. Surgery evaluation was appreciated. GI evaluation is requested. Will trend liver and cardiac enzymes. Hepatitis panel, alcohol level and urine drug screen is ordered. Patient was very anxious and agitated upon arrival to floor. Wanted to leave AMA but later decided to stay. Offered social media manager or psychiatry evaluation which she refused. Vashti Sewell MD Hospitalist.
[2017-06-09 15:53] LABS: TROPONIN I < 0.01 ng/mL
[2017-06-09] MEDS: Morphine 2 mg/ml ISec IVP PRN ×2 (17:41→23:56)
[2017-06-09 18:12] VITALS: BMI 34.2
[2017-06-09] MEDS ORDERED: Pneumococcal 23-Valent Vaccine IM ONE (18:12)
[2017-06-09] MEDS ORDERED: Influenza Vaccine 60 mcg/0.5 mL SYR (4YR UP) IM ONE (18:12)
[2017-06-09 21:55] LABS: TROPONIN I < 0.01 ng/mL
[2017-06-10 06:11] VITALS: O2SAT 98
[2017-06-10 07:03] LABS: ALB/GLOB RATIO 1.2 (1.1-1.8); ALKALINE PHOSPHATASE 63 U/L (38-126); ALT/SGPT 114 U/L (7-56); AST/SGOT 107 U/L (14-36); BILIRUBIN,TOTAL 0.4 mg/dL (0.2-1.3); BLOOD UREA NITROGEN 13 mg/dL (7-21); CALCIUM 8.2 mg/dL (8.4-10.5); CARBON DIOXIDE 27 mmol/L (21-33); CHLORIDE 104 mmol/L (98-107); CHOLESTEROL 249 mg/dL (130-200); GFR AFRICAN-AMERICAN > 60; GLUCOSE,RANDOM 126 mg/dL (70-110); SODIUM 138 mmol/L (132-148); TOTAL PROTEIN 6.6 g/dL (5.8-8.3)
[2017-06-10 07:19] LABS: BASO # 0.03 K/mm3 (0.0-2.0); BASO % 0.4 % (0.0-3.0); EOS # 0.2 (0.0-0.7); EOS % 2.9 % (1.5-5.0); GRAN # 4.75 (1.4-6.5); GRAN % 62.5 % (50.0-68.0); HEMATOCRIT 37.8 % (36.0-48.0); LYMPH # 2.2 (1.2-3.4); LYMPH % 28.3 % (22.0-35.0); MEAN CELL VOLUME 96.2 fl (80.0-105.0); MEAN CORPUSCULAR HGB CONC 32.3 g/dl (31.0-37.0); MONO # 0.5 (0.1-0.6); MONO % 5.9 % (1.0-6.0); RED CELL DISTRIBUTION WIDTH 12.8 % (11.5-14.5); WHITE BLOOD COUNT 7.6 10^3/ul (4.5-11.0)
[2017-06-10] MEDS ORDERED: Naproxen 550 mg Tab PO PRN (09:33)
--- NOTE | 2017-06-10 09:53 | CARD ---
APPROVED REPORT EKG Measurement Heart [id number] <Conclusion> Normal sinus rhythm LVH Small q in lll T waves flatter c/w ECG 12/25/13
--- NOTE | 2017-06-10 09:54 | CP.PCM.PN ---
Subjective - Date & Time of Evaluation Date of Evaluation: 06/10/17 Time of Evaluation: 07:15 - Subjective Subjective: General Surgery- Dr. Oleary Patient seen and examined at bedside this AM. No acute events overnight. Still has some nausea. Continued RUQ pain w/ deep palpation. denies fevers, chills, chest pain, shortness of breath, vomiting, diarrhea. Objective - Vital Signs/Intake and Output Vital Signs (last 24 hours): Temp Pulse Resp BP Pulse Ox 97.9 F 72 20 148/94 H 98 06/10/17 06:00 06/10/17 06:00 06/10/17 06:00 06/10/17 06:00 06/10/17 06:00 Intake and Output: 06/10/17 06/10/17 06:59 18:59 Intake Total 580 Balance 580 - Medications Medications: Current Medications Alprazolam (Xanax) 0.5 mg PO TID PRN; Protocol PRN Reason: Anxiety Last Admin: 06/10/17 08:57 Dose: 0.5 mg Morphine Sulfate (Morphine) 2 mg IVP Q6H PRN PRN Reason: Pain, moderate (4-7) Last Admin: 06/09/17 23:56 Dose: 2 mg Naproxen (Anaprox Ds) 550 mg PO BID PRN PRN Reason: abdominal pain Ondansetron HCl (Zofran Inj) 4 mg IVP Q6 PRN PRN Reason: Nausea/Vomiting Last Admin: 06/10/17 08:00 Dose: 4 mg Pantoprazole Sodium (Protonix Inj) 40 mg IVP DAILY POLO - Labs Labs: 06/10/17 05:30 06/10/17 05:30 PT 11.0 SECONDS (9.4-12.5) 06/09/17 09:01 INR 1.00 (0.93-1.08) 06/09/17 09:01 APTT 28.3 Seconds (25.1-36.5) 06/09/17 09:01 - Constitutional Appears: Non-toxic, No Acute Distress - Head Exam Head Exam: ATRAUMATIC - Eye Exam Eye Exam: EOMI. absent: Scleral icterus - ENT Exam ENT Exam: Mucous Membranes Moist - Respiratory Exam Respiratory Exam: NORMAL BREATHING PATTERN. absent: Accessory Muscle Use, Respiratory Distress - Cardiovascular Exam Cardiovascular Exam: +S1, +S2. absent: Bradycardia, Tachycardia - GI/Abdominal Exam GI & Abdominal Exam: Soft, Tenderness. absent: Distended, Firm, Guarding, Rigid Additional comments: tender in RUQ - Extremities Exam Extremities Exam: Normal Inspection. absent: Calf Tenderness - Neurological Exam Neurological Exam: Alert, Awake, Oriented x3 - Psychiatric Exam Psychiatric exam: Normal Affect - Skin Skin Exam: Intact, Warm Assessment and Plan - Assessment and Plan (Free Text) Assessment: 52F RUQ pain biliary colic; negative HIDA Plan: - not cholecystitis - no acute surgical intervention at this time - can plan for surgery at a later date - GI Dr. Che is on board; GI recs appreciated - further recs per Dr. Oleary surgical attending Delio Wray PGY1
[2017-06-10 12:04] VITALS: BP 157/96; PULSE 64; RESP 18; TEMP 98.1
--- NOTE | 2017-06-10 12:30 | CON ---
DATE: 06/10/2017 GASTROENTEROLOGY CONSULTATION REQUESTING PHYSICIAN: Dr. Sewell REASON FOR CONSULTATION: I have been asked to see this 52-year-old female who comes to the hospital with several days of right upper quadrant abdominal pain radiating around the flank to the back and over the last 24 hours, radiating to the chest. This prompted her to come to the Emergency Room. HISTORY OF PRESENT ILLNESS: The patient denies any heartburn, nausea, or vomiting. She denies any palpitations or shortness of breath. She denies any relationship of the pain to meals. She describes the pain as a sharp, stabbing pain in the right upper quadrant radiating to the flank. She denies any fevers or chills. There is a question as to whether the patient has a history of gallstones. Abdominal ultrasound was negative for gallstones. CT scan of the abdomen and pelvis revealed hepatomegaly with steatosis and diverticulosis. No masses were seen in the liver. Kidneys were normal. PAST MEDICAL HISTORY: Again is notable for a question of gallstones. PAST SURGICAL HISTORY: Notable for . SOCIAL HISTORY: She smokes less than half pack of cigarettes per day. She consumes alcohol on a social basis. FAMILY HISTORY: Notable for diabetes mellitus. REVIEW OF SYSTEMS: A 14-point review of systems is notable for right upper quadrant abdominal pain and flank pain radiating to the chest. MEDICATIONS: At home are unknown. ALLERGIES: SHE IS ALLERGIC TO CODEINE AND SULFA. PHYSICAL EXAMINATION: GENERAL: An obese female lying in bed in no acute distress. BMI is 37.5. VITAL SIGNS: Reveal temperature of 97.9, blood pressure of 148/94, and heart rate of 72. HEENT: Reveal sclerae to be white. Conjunctivae are pink. NECK: Supple. CHEST: Lungs are clear. CARDIOVASCULAR: Heart exam reveals regular rate and rhythm. GASTROINTESTINAL: Abdomen is obese, soft, and nontender. EXTREMITIES: Show no edema. LABORATORY DATA: Revealed white blood cell count of 7.6 and hemoglobin of 12.2. Chemistries revealed AST of 107, ALT of 114, and alkaline phosphatase is normal. Total bilirubin is normal. Triglycerides of 221 and cholesterol of 249. Amylase and lipase are normal. IMPRESSION: This is a 52-year-old female with several days of right upper quadrant abdominal pain, most recently radiating to the chest. The ultrasound of the abdomen was negative for gallstones. CT scan did show an enlarged liver and steatosis. Her hepatobiliary scan is negative for cystic duct obstruction. I reviewed all these x-rays myself. I suspect that her pain is due to either hepatomegaly with stretching of the liver capsule or possibly musculoskeletal in etiology. RECOMMENDATIONS: 1. We will advance to a low-fat diet given her hyperlipidemia. 2. Trial of naproxen 375 mg twice a day with PPI. The patient is stable from GI and no further GI workup is planned at this time. Danyel Vega MD
--- NOTE | 2017-06-10 12:47 | CP.PCM.DIS ---
<Tiana Kent - Last Filed: 06/10/17 16:07> Provider - Provider Date of Admission: 06/09/17 12:01 Attending physician: Vashti Sewell MD Consults: GI - Dr. Vega Surgery - Dr. Oleary Time Spent in preparation of Discharge (in minutes): 40 Diagnosis - Discharge Diagnosis (1) Abdominal pain Status: Resolved Comment: Abdominal Pain that radiated to Chest resolved. Hospital Course - Lab Results Lab Results: Most Recent Lab Values WBC 7.6 10^3/ul (4.5-11.0) 06/10/17 05:30 RBC 3.93 10^6/uL (3.5-6.1) 06/10/17 05:30 Hgb 12.2 g/dL (12.0-16.0) 06/10/17 05:30 Hct 37.8 % (36.0-48.0) 06/10/17 05:30 MCV 96.2 fl (80.0-105.0) 06/10/17 05:30 MCH 31.0 pg (25.0-35.0) 06/10/17 05:30 MCHC 32.3 g/dl (31.0-37.0) 06/10/17 05:30 RDW 12.8 % (11.5-14.5) 06/10/17 05:30 Plt Count 163 10^3/uL (120.0-450.0) 06/10/17 05:30 MPV 12.0 fl (7.0-11.0) H 06/10/17 05:30 Gran % 62.5 % (50.0-68.0) 06/10/17 05:30 Lymph % (Auto) 28.3 % (22.0-35.0) 06/10/17 05:30 Pierce % (Auto) 5.9 % (1.0-6.0) 06/10/17 05:30 Eos % (Auto) 2.9 % (1.5-5.0) 06/10/17 05:30 Baso % (Auto) 0.4 % (0.0-3.0) 06/10/17 05:30 Gran # 4.75 (1.4-6.5) 06/10/17 05:30 Lymph # 2.2 (1.2-3.4) 06/10/17 05:30 Pierce # 0.5 (0.1-0.6) 06/10/17 05:30 Eos # 0.2 (0.0-0.7) 06/10/17 05:30 Baso # 0.03 K/mm3 (0.0-2.0) 06/10/17 05:30 PT 11.0 SECONDS (9.4-12.5) 06/09/17 09:01 INR 1.00 (0.93-1.08) 06/09/17 09:01 APTT 28.3 Seconds (25.1-36.5) 06/09/17 09:01 pO2 167 mm/Hg (30-55) H 06/09/17 09:01 VBG pH 7.38 (7.32-7.43) 06/09/17 09:01 VBG pCO2 43.0 (40-60) 06/09/17 09:01 VBG HCO3 25.4 mmol/l (21-28) 06/09/17 09:01 VBG Total CO2 26.7 mmol.L (22-28) 06/09/17 09:01 VBG O2 Sat (Calc) 99.4 % (40-65) H 06/09/17 09:01 VBG Base Excess 0.0 mmol/L (0.0-2.0) 06/09/17 09:01 VBG Potassium 4.2 mmol/L (3.6-5.2) 06/09/17 09:01 Sodium 137.0 mmol/L (132-148) 06/09/17 09:01 Chloride 109.0 mmol/L (98-107) H 06/09/17 09:01 Glucose 164 mg/dl (65-105) H 06/09/17 09:01 Lactate 1.4 mmol/L (0.7-2.1) 06/09/17 09:01 FiO2 21.0 % 06/09/17 09:01 Sodium 138 mmol/L (132-148) 06/10/17 05:30 Potassium 4.0 mmol/L (3.6-5.0) 06/10/17 05:30 Chloride 104 mmol/L (98-107) 06/10/17 05:30 Carbon Dioxide 27 mmol/L (21-33) 06/10/17 05:30 Anion Gap 11 (10-20) 06/10/17 05:30 BUN 13 mg/dL (7-21) 06/10/17 05:30 Creatinine 0.6 mg/dl (0.7-1.2) L 06/10/17 05:30 Est GFR ( Amer) > 60 06/10/17 05:30 Est GFR (Non-Af Amer) > 60 06/10/17 05:30 Random Glucose 126 mg/dL (70-110) H 06/10/17 05:30 Calcium 8.2 mg/dL (8.4-10.5) L 06/10/17 05:30 Total Bilirubin 0.4 mg/dL (0.2-1.3) 06/10/17 05:30 AST 107 U/L (14-36) H 06/10/17 05:30 ALT 114 U/L (7-56) H 06/10/17 05:30 Alkaline Phosphatase 63 U/L (38-126) 06/10/17 05:30 Lactate Dehydrogenase 598 U/L (333-699) 06/09/17 21:25 Total Creatine Kinase 152 U/L (35-230) 06/09/17 21:25 Troponin I < 0.01 ng/mL 06/09/17 21:25 Total Protein 6.6 g/dL (5.8-8.3) 06/10/17 05:30 Albumin 3.6 g/dL (3.0-4.8) 06/10/17 05:30 Globulin 3.0 gm/dL 06/10/17 05:30 Albumin/Globulin Ratio 1.2 (1.1-1.8) 06/10/17 05:30 Triglycerides 221 mg/dL (35-160) H 06/10/17 05:30 Cholesterol 249 mg/dL (130-200) H 06/10/17 05:30 LDL Cholesterol Direct 192 mg/dL (0-129) H 06/10/17 05:30 HDL Cholesterol 40 mg/dL (29-60) 06/10/17 05:30 Amylase 36 U/L (35-125) 06/09/17 09:01 Lipase 145 U/L (23-300) 06/09/17 09:01 Venous Blood Potassium 4.2 mmol/L (3.6-5.2) 06/09/17 09:01 Urine Color Yellow (YELLOW) 06/09/17 09:10 Urine Appearance Clear (CLEAR) 06/09/17 09:10 Urine pH 6.0 (4.7-8.0) 06/09/17 09:10 Ur Specific [place] 1.025 (1.005-1.035) 06/09/17 09:10 Urine Protein 100 mg/dL (<30 mg/dL) H 06/09/17 09:10 Urine Glucose (UA) Negative mg/dL (NEGATIVE) 06/09/17 09:10 Urine Ketones Trace mg/dL (NEGATIVE) H 06/09/17 09:10 Urine Blood Large (NEGATIVE) H 06/09/17 09:10 Urine Nitrate Negative (NEGATIVE) 06/09/17 09:10 Urine Bilirubin Negative (NEGATIVE) 06/09/17 09:10 Urine Urobilinogen 0.2 E.U./dL (<1 E.U./dL) 06/09/17 09:10 Ur Leukocyte Esterase Negative [place]/uL (NEGATIVE) 06/09/17 09:10 Urine RBC 25 - 30 /hpf (0-2) 06/09/17 09:10 Urine WBC 1 - 3 /hpf (0-6) 06/09/17 09:10 Ur Epithelial Cells Many /hpf (0-5) 06/09/17 09:10 Urine Bacteria Large (NEG) 06/09/17 09:10 Urine Other Uyeast 06/09/17 09:10 Urine HCG, Qual Negative (NEGATIVE) 06/09/17 09:10 Urine Opiates Screen Positive (NEGATIVE) H 06/09/17 15:44 Urine Methadone Screen Negative (NEGATIVE) 06/09/17 15:44 Ur Barbiturates Screen Negative (NEGATIVE) 06/09/17 15:44 Ur Phencyclidine Scrn Negative (NEGATIVE) 06/09/17 15:44 Ur Amphetamines Screen Negative (NEGATIVE) 06/09/17 15:44 U Benzodiazepines Scrn Negative (NEGATIVE) 06/09/17 15:44 U Oth Cocaine Metabols Negative (NEGATIVE) 06/09/17 15:44 U Cannabinoids Screen Negative (NEGATIVE) 06/09/17 15:44 Alcohol, Quantitative < 10 mg/dL (0-10) 06/09/17 21:25 Hepatitis A IgM Ab Negative (NEGATIVE) 06/09/17 15:25 Hep Bs Antigen Negative (NEGATIVE) 06/09/17 15:25 Hep B Core IgM Ab Negative (NEGATIVE) 06/09/17 15:25 Hepatitis C Antibody Negative (NEGATIVE) 06/09/17 15:25 - Hospital Course Hospital Course: 52 year female with PMHx of gallstones and tobacco admitted for evaluation and treatment of abdominal pain that radiated to the chest. Patient had elevated LFT 's on admission. GI and Surgery were consulted on the case. EKG was unremarkable, CXR showed Cardiomegaly with borderline prominent central pulmonary vascular congestion. No pleural effusions. Abdominal US showed hepatomegaly w/ hepatic steatosis, CT Abd showed severe diverticular disease, HIDA scan was negative, troponins negative x 3, hepatitis panel negative, symptoms resolved after pepcid administration. Patient is stable for discharge. Patient will be sent home with Protonix. She is to follow up with her primary medical physician. She is to also follow up with GI for outpatient endoscopy. Patient is agreeable to plan and medications. - Date & Time of H&P Date of H&P: 06/10/17 Time of H&P: 13:00 Discharge Exam - Head Exam Head Exam: ATRAUMATIC, NORMAL INSPECTION, NORMOCEPHALIC - Eye Exam Eye Exam: Normal appearance. absent: Conjunctival injection - ENT Exam ENT Exam: Mucous Membranes Moist - Neck Exam Neck exam: Full Rom - Respiratory Exam Respiratory Exam: Clear to PA & Lateral. absent: Rales, Rhonchi - Cardiovascular Exam Cardiovascular Exam: REGULAR RHYTHM, +S1, +S2. absent: Diastolic murmur, JVD, Systolic Murmur - GI/Abdominal Exam GI & Abdominal Exam: Normal Bowel Sounds, Soft. absent: Distended, Firm, Guarding, Organomegaly, Rebound, Tenderness - Extremities Exam Extremities exam: normal capillary refill, pedal edema - Psychiatric Exam Psychiatric exam: Normal Affect, Normal Mood - Skin Skin Exam: Dry, Intact, Normal Color, Warm Discharge Plan - Discharge Medications Prescriptions: Pantoprazole [Protonix] 40 mg PO DAILY #14 - Follow Up Plan Condition: FAIR Disposition: HOME/ ROUTINE Instructions: Chest Pain (DC), How to Stop Smoking (DC), Heart Healthy Diet (DC ), Cigarette Smoking and Your Health (GEN), Acute Nausea and Vomiting (DC), Acute Diarrhea (GEN), Acute Abdominal Pain (DC) Additional Instructions: Please follow up with your primary medical physician within one week. Please follow up with GI physician for outpatient endoscopy. Please take medications as instructed. Nursing 1. If symptoms return, please go to nearest emergency room or dial 911. 2. See care notes for further instruction Referrals: Danyel Vega MD [Staff Provider] - <Vashti Sewell - Last Filed: 06/10/17 17:42> Provider - Provider Date of Admission: 06/09/17 12:01 Attending physician: Vashti Sewell MD [facility] Course - Lab Results Lab Results: Most Recent Lab Values WBC 7.6 10^3/ul (4.5-11.0) 06/10/17 05:30 RBC 3.93 10^6/uL (3.5-6.1) 06/10/17 05:30 Hgb 12.2 g/dL (12.0-16.0) 06/10/17 05:30 Hct 37.8 % (36.0-48.0) 06/10/17 05:30 MCV 96.2 fl (80.0-105.0) 06/10/17 05:30 MCH 31.0 pg (25.0-35.0) 06/10/17 05:30 MCHC 32.3 g/dl (31.0-37.0) 06/10/17 05:30 RDW 12.8 % (11.5-14.5) 06/10/17 05:30 Plt Count 163 10^3/uL (120.0-450.0) 06/10/17 05:30 MPV 12.0 fl (7.0-11.0) H 06/10/17 05:30 Gran % 62.5 % (50.0-68.0) 06/10/17 05:30 Lymph % (Auto) 28.3 % (22.0-35.0) 06/10/17 05:30 Pierce % (Auto) 5.9 % (1.0-6.0) 06/10/17 05:30 Eos % (Auto) 2.9 % (1.5-5.0) 06/10/17 05:30 Baso % (Auto) 0.4 % (0.0-3.0) 06/10/17 05:30 Gran # 4.75 (1.4-6.5) 06/10/17 05:30 Lymph # 2.2 (1.2-3.4) 06/10/17 05:30 Pierce # 0.5 (0.1-0.6) 06/10/17 05:30 Eos # 0.2 (0.0-0.7) 06/10/17 05:30 Baso # 0.03 K/mm3 (0.0-2.0) 06/10/17 05:30 PT 11.0 SECONDS (9.4-12.5) 06/09/17 09:01 INR 1.00 (0.93-1.08) 06/09/17 09:01 APTT 28.3 Seconds (25.1-36.5) 06/09/17 09:01 pO2 167 mm/Hg (30-55) H 06/09/17 09:01 VBG pH 7.38 (7.32-7.43) 06/09/17 09:01 VBG pCO2 43.0 (40-60) 06/09/17 09:01 VBG HCO3 25.4 mmol/l (21-28) 06/09/17 09:01 VBG Total CO2 26.7 mmol.L (22-28) 06/09/17 09:01 VBG O2 Sat (Calc) 99.4 % (40-65) H 06/09/17 09:01 VBG Base Excess 0.0 mmol/L (0.0-2.0) 06/09/17 09:01 VBG Potassium 4.2 mmol/L (3.6-5.2) 06/09/17 09:01 Sodium 137.0 mmol/L (132-148) 06/09/17 09:01 Chloride 109.0 mmol/L (98-107) H 06/09/17 09:01 Glucose 164 mg/dl (65-105) H 06/09/17 09:01 Lactate 1.4 mmol/L (0.7-2.1) 06/09/17 09:01 FiO2 21.0 % 06/09/17 09:01 Sodium 138 mmol/L (132-148) 06/10/17 05:30 Potassium 4.0 mmol/L (3.6-5.0) 06/10/17 05:30 Chloride 104 mmol/L (98-107) 06/10/17 05:30 Carbon Dioxide 27 mmol/L (21-33) 06/10/17 05:30 Anion Gap 11 (10-20) 06/10/17 05:30 BUN 13 mg/dL (7-21) 06/10/17 05:30 Creatinine 0.6 mg/dl (0.7-1.2) L 06/10/17 05:30 Est GFR ( Amer) > 60 06/10/17 05:30 Est GFR (Non-Af Amer) > 60 06/10/17 05:30 Random Glucose 126 mg/dL (70-110) H 06/10/17 05:30 Calcium 8.2 mg/dL (8.4-10.5) L 06/10/17 05:30 Total Bilirubin 0.4 mg/dL (0.2-1.3) 06/10/17 05:30 AST 107 U/L (14-36) H 06/10/17 05:30 ALT 114 U/L (7-56) H 06/10/17 05:30 Alkaline Phosphatase 63 U/L (38-126) 06/10/17 05:30 Lactate Dehydrogenase 598 U/L (333-699) 06/09/17 21:25 Total Creatine Kinase 152 U/L (35-230) 06/09/17 21:25 Troponin I < 0.01 ng/mL 06/09/17 21:25 Total Protein 6.6 g/dL (5.8-8.3) 06/10/17 05:30 Albumin 3.6 g/dL (3.0-4.8) 06/10/17 05:30 Globulin 3.0 gm/dL 06/10/17 05:30 Albumin/Globulin Ratio 1.2 (1.1-1.8) 06/10/17 05:30 Triglycerides 221 mg/dL (35-160) H 06/10/17 05:30 Cholesterol 249 mg/dL (130-200) H 06/10/17 05:30 LDL Cholesterol Direct 192 mg/dL (0-129) H 06/10/17 05:30 HDL Cholesterol 40 mg/dL (29-60) 06/10/17 05:30 Amylase 36 U/L (35-125) 06/09/17 09:01 Lipase 145 U/L (23-300) 06/09/17 09:01 Venous Blood Potassium 4.2 mmol/L (3.6-5.2) 06/09/17 09:01 Urine Color Yellow (YELLOW) 06/09/17 09:10 Urine Appearance Clear (CLEAR) 06/09/17 09:10 Urine pH 6.0 (4.7-8.0) 06/09/17 09:10 Ur Specific [place] 1.025 (1.005-1.035) 06/09/17 09:10 Urine Protein 100 mg/dL (<30 mg/dL) H 06/09/17 09:10 Urine Glucose (UA) Negative mg/dL (NEGATIVE) 06/09/17 09:10 Urine Ketones Trace mg/dL (NEGATIVE) H 06/09/17 09:10 Urine Blood Large (NEGATIVE) H 06/09/17 09:10 Urine Nitrate Negative (NEGATIVE) 06/09/17 09:10 Urine Bilirubin Negative (NEGATIVE) 06/09/17 09:10 Urine Urobilinogen 0.2 E.U./dL (<1 E.U./dL) 06/09/17 09:10 Ur Leukocyte Esterase Negative [place]/uL (NEGATIVE) 06/09/17 09:10 Urine RBC 25 - 30 /hpf (0-2) 06/09/17 09:10 Urine WBC 1 - 3 /hpf (0-6) 06/09/17 09:10 Ur Epithelial Cells Many /hpf (0-5) 06/09/17 09:10 Urine Bacteria Large (NEG) 06/09/17 09:10 Urine Other Uyeast 06/09/17 09:10 Urine HCG, Qual Negative (NEGATIVE) 06/09/17 09:10 Urine Opiates Screen Positive (NEGATIVE) H 06/09/17 15:44 Urine Methadone Screen Negative (NEGATIVE) 06/09/17 15:44 Ur Barbiturates Screen Negative (NEGATIVE) 06/09/17 15:44 Ur Phencyclidine Scrn Negative (NEGATIVE) 06/09/17 15:44 Ur Amphetamines Screen Negative (NEGATIVE) 06/09/17 15:44 U Benzodiazepines Scrn Negative (NEGATIVE) 06/09/17 15:44 U Oth Cocaine Metabols Negative (NEGATIVE) 06/09/17 15:44 U Cannabinoids Screen Negative (NEGATIVE) 06/09/17 15:44 Alcohol, Quantitative < 10 mg/dL (0-10) 06/09/17 21:25 Hepatitis A IgM Ab Negative (NEGATIVE) 06/09/17 15:25 Hep Bs Antigen Negative (NEGATIVE) 06/09/17 15:25 Hep B Core IgM Ab Negative (NEGATIVE) 06/09/17 15:25 Hepatitis C Antibody Negative (NEGATIVE) 06/09/17 15:25 Attending/Attestation - Attestation I have personally seen and examined this patient.: Yes I have fully participated in the care of the patient.: Yes I have reviewed all pertinent clinical information, including history, physical exam and plan: Yes Notes (Text): 06/10/17 17:37 51 year old female who presented with complaint of RUQ and epigastric pain radiating to her chest. US abdomen showed hepatomegaly without gallstones. CT abd/pelvis showed severe diverticular disease. LFTs are elevated. Amylase/lipase and serial cardiac enzymes were negative. HIDA scan was negative. Her symptoms improved with PPI. Her diet was advanced which she tolerated. She was seen by GI and surgery. Patient is discharged home today on PPI. Recommended outpatient GI follow up for EGD +/- colonoscopy. Follow up with pmd to monitor LFTs. Counselled on alcohol abstinence. Vashti Sewell MD Hospitalist.
--- NOTE | 2017-06-10 14:38 | NM ---
PROCEDURE: Nuclear Medicine Hepatobiliary Scan HISTORY: RUQ pain. COMPARISON: June 09, 2017. Abdominal ultrasound June 09, 2017. CT abdomen and pelvis. TECHNIQUE: 6.1 mCi of technetium 99m Mebrofenin was administered intravenously. Planar images of the abdomen were obtained at 5 min intervals to 60 mins. Delayed images were also obtained. FINDINGS: LIVER: Timely and heterogeneous uptake. Artifact related to overlying breast tissue accounts for heterogeneous appearance primarily of the right lobe and medial segment left lobe COMMON BILE DUCT: identified at 5 mins. GALLBLADDER: identified at 15 mins. SMALL BOWEL: Not identified at the conclusion of the study-60 mins. IMPRESSION: Patent cystic duct. Prompt visualization of the common duct and gallbladder. The study was terminated at 60 minutes for reasons unknown to me. Radionuclide was not visualized in the small bowel but this is likely due preferential filling of a dilated gallbladder.
== END 2017-06-10 13:33 | disposition home or self-care (01) ==
LOC: ED 08:38 → INTOOBSV 12:01 → ERH 12:01 → 2RSO 13:47
PROVIDERS: ADMIT Internal Medicine; ATTEND Internal Medicine
DX: K57.30 Diverticulosis of large intestine without perforation or abscess without bleeding (principal); R16.0 Hepatomegaly, not elsewhere classified; K76.0 Fatty (change of) liver, not elsewhere classified; K80.20 Calculus of gallbladder without cholecystitis without obstruction; I51.7 Cardiomegaly; F17.210 Nicotine dependence, cigarettes, uncomplicated

== ENCOUNTER 2017-11-01 08:38 | Emergency (ER) | payer OTHER ==
[2017-11-01 08:56] VITALS: BMI 35.2
[2017-11-01 09:01] VITALS: RESP 18; TEMP 98.2
[2017-11-01] MEDS ORDERED: MethylPREDNISolone Depo 40 mg/ml Inj IM STA (09:27)
[2017-11-01] MEDS ORDERED: Albuterol 0.083% Inhal Sol (2.5 mg/3 mL) UD INH STA (09:27)
[2017-11-01] MEDS ORDERED: Albuterol-Ipratrop 3 mg / 0.5 (3 ml) UD IH STA (09:27)
--- NOTE | 2017-11-01 09:32 | ED PDOC ---
Arrival/HPI - General Chief Complaint: Upper Extremity Problem/Injury Time Seen by Provider: 11/01/17 09:04 Historian: Patient - History of Present Illness Narrative History of Present Illness (Text): 11/01/17 09:29 A 52 year old female smoker, with no past medical history, presents to the emergency department complaining of shortness of breath/wheezing and right elbow pain. Patient reports for right elbow pain, has been ongoing for 2-3 weeks and has recently worsened. 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 Patient denies any complaints at this time. Also, patient mentions she is allergic to Codeine, however he is able to take Percocet and Vicodin. No PMD Past Medical History - Provider Review Nursing Documentation Reviewed: Yes - Infectious Disease Hx of Infectious Diseases: None - Tetanus Immunization Tetanus Immunization: Unknown - Past Medical History Past Medical History: No Previous - HEENT Hx HEENT Disorder: Yes (eyeglasses) - Musculoskeletal/Rheumatological Hx Arthritis: Yes Other/Comment: myalgia - Gastrointestinal Hx Gastrointestinal Disorders: Yes (obese) Hx Gall Bladder Disease: Yes (gallstones) - Psychiatric Hx Depression: No Hx Emotional Abuse: No Hx Physical Abuse: No Hx Substance Use: No - Past Surgical History Past Surgical History: No Previous - Surgical History Hx Section: Yes (x3) - Anesthesia Hx Anesthesia: Yes Hx Anesthesia Reactions: No Hx Malignant Hyperthermia: No - Suicidal Assessment Feels Threatened In Home Enviroment: No Family/Social History - Physician Review Nursing Documentation Reviewed: Yes Family/Social History: No Known Family HX Smoking Status: Light Smoker < 10 Cigarettes Daily Hx Alcohol Use: Yes Hx Substance Use: No Hx Substance Use Treatment: No Allergies/Home Meds Allergies/Adverse Reactions: Allergies codeine Allergy (Verified 11/01/17 09:14) SWELLING Sulfa (Sulfonamide Antibiotics) Allergy (Verified 11/01/17 09:14) ANAPHYLAXIS Review of Systems - Physician Review All systems were reviewed & negative as marked: Yes - Review of Systems Constitutional: absent: Fevers Respiratory: SOB, Wheezing. absent: Cough Cardiovascular: absent: Chest Pain Gastrointestinal: absent: Abdominal Pain, Diarrhea, Nausea, Vomiting Musculoskeletal: Other (right elbow pain) Physical Exam Vital Signs Reviewed: Yes Vital Signs Temp Pulse Resp BP Pulse Ox 11/01/17 09:00 98.2 F 85 18 164/99 H 96 Temperature: Afebrile Blood Pressure: Hypertensive Pulse: Regular Respiratory Rate: Normal Appearance: Positive for: Well-Appearing Pain Distress: None Mental Status: Positive for: Alert and Oriented X 3 - Systems Exam Respiratory/Chest: Present: Wheezes (all lung haddad) Cardiovascular: Present: Regular Rate and Rhythm, Normal S1, S2. No: Murmurs Abdomen: No: Tenderness, Distention, Peritoneal Signs Upper Extremity: Present: Tenderness (lateral condyle region), Swelling ( posterior aspect of right elbow), Other (epicondylitis lateral aspect of right elbow; pain with extention) Lower Extremity: Present: Normal Inspection. No: Edema Neurological: Present: GCS=15, CN II-XII Intact, Speech Normal Skin: Present: Warm, Dry, Normal Color. No: Rashes Psychiatric: Present: Alert, Oriented x 3, Normal Insight, Normal Concentration Medical Decision Making ED Course and Treatment: 11/01/17 09:33 Impression: 52 year old female with shortness of breath and wheezing; and right elbow pain. Physical exam shows wheezing in all lung haddad; lateral epicondylitis to right elbow, swelling to posterior region of right elbow; tenderness to lateral condyle (right elbow), pain with extention. Plan: -- Chest X-ray -- Right Elbow X-Ray -- Albuterol -- Duoneb -- DEPO-Medrol -- Reassess and disposition Progress Notes: 11/01/2017 10:12 Chest X-ray IMPRESSION: No active disease. Dictator: Norman Nolan MD 11/01/2017 10:13 Right Elbow X-Ray IMPRESSION: Unremarkable radiographs of the right elbow. Dictator: Norman Nolan MD - RAD Interpretation Radiology Orders: 11/01/17 09:27 ELBOW RIGHT 3 VIEWS ROUTINE [RAD] Stat 11/01/17 09:29 CXR [CHEST TWO VIEWS (PA/LAT)] [RAD] Stat - Medication Orders Current Medication Orders: Ibuprofen (Motrin Tab) 800 mg PO STAT STA Stop: 11/01/17 10:51 Ondansetron HCl (Zofran Odt) 8 mg PO STAT STA Stop: 11/01/17 10:51 Oxycodone/Acetaminophen (Percocet 5/325 Mg Tab) 2 tab PO STAT STA Stop: 11/01/17 10:51 Discontinued Medications Albuterol Sulfate (Albuterol 0.083% Inhal Natalya (2.5 Mg/3 Ml) Ud) 2.5 mg INH STAT STA Stop: 11/01/17 09:28 Last Admin: 11/01/17 09:45 Dose: 2.5 mg Albuterol/Ipratropium (Duoneb 3 Mg/0.5 Mg (3 Ml) Ud) 3 ml IH STAT STA Stop: 11/01/17 09:28 Last Admin: 11/01/17 09:45 Dose: 3 ml Methylprednisolone Acetate (Depo-Medrol) 40 mg IM STAT STA Stop: 11/01/17 09:28 Last Admin: 11/01/17 09:45 Dose: 40 mg IM Administration Charges Document 11/01/17 09:45 EQ (Rec: 11/01/17 09:45 EQ [id number]) Injection Site MAR Injection Site Left Deltoid Charges for Administration # of IM Administrations 1 - Scribe Statement The provider has reviewed the documentation as recorded by the Manjuibrosa Khalil Provider Scribe Attestation: All medical record entries made by the Scribe were at my direction and personally dictated by me. I have reviewed the chart and agree that the record accurately reflects my personal performance of the history, physical exam, medical decision making, and the department course for this patient. I have also personally directed, reviewed, and agree with the discharge instructions and disposition. Disposition/Present on Arrival - Present on Arrival Any Indicators Present on Arrival: No History of DVT/PE: No History of Uncontrolled Diabetes: No Urinary Catheter: No History of Decub. Ulcer: No History Surgical Site Infection Following: None - Disposition Have Diagnosis and Disposition been Completed?: Yes Diagnosis: Bronchitis, Bursitis Disposition: HOME/ ROUTINE Disposition Time: 10:52 Patient Plan: Discharge Patient Problems: Current Active Problems Problem Status Onset Bronchitis Acute Bursitis Acute Condition: GOOD Discharge Instructions (ExitCare): Acute Bronchitis, Adult (DC), Bursitis (DC) Additional Instructions: Mrs Fonseca- Please follow up with Dr. Trammell. [Orthopedics] Take the Motrin three times a day with food. No Heavy lifting with either arm. Zithromax and the Inhaler are for the Bronchitis, [Cut back on the smoking] Return to us if any problems at all. Best- Dr. Daniel Ruiz Referrals: James Trammell III, MD [Medical Doctor] - Follow up with primary Forms: [employer] (Mongolian), WORK NOTE
--- NOTE | 2017-11-01 10:14 | RAD ---
HISTORY: wheezing COMPARISON: 06/09/2017 TECHNIQUE: Chest PA and lateral FINDINGS: LUNGS: No active pulmonary disease. PLEURA: No significant pleural effusion identified. No pneumothorax apparent. CARDIOVASCULAR: Normal. OSSEOUS STRUCTURES: No significant abnormalities. VISUALIZED UPPER ABDOMEN: Normal. OTHER FINDINGS: None. IMPRESSION: No active disease.
--- NOTE | 2017-11-01 10:15 | RAD ---
PROCEDURE: Radiographs of the right elbow. HISTORY: bursitis/epicondylitis COMPARISON: No prior. FINDINGS: BONES: Normal. No fracture. JOINTS: Normal. No osteoarthritis. SOFT TISSUES: Normal. JOINT EFFUSION: None. OTHER FINDINGS: None. IMPRESSION: Unremarkable radiographs of the right elbow.
[2017-11-01] MEDS ORDERED: Oxycodone/Acetaminophen 5/325 mg Tab PO STA (10:50)
[2017-11-01 11:33] VITALS: BP 168/91; PULSE 89; O2SAT 97
== END 2017-11-01 11:31 | disposition home or self-care (01) ==
LOC: ED 08:38
DX: J40 Bronchitis, not specified as acute or chronic (principal); M70.31 Other bursitis of elbow, right elbow; F17.210 Nicotine dependence, cigarettes, uncomplicated
CPT/HCPCS: 71046; 73080; 96372; 99284; J1030

== ENCOUNTER 2018-10-05 08:38 | Emergency (ER) | payer OTHER ==
[2018-10-05 08:46] VITALS: BMI 34.0
[2018-10-05 09:02] VITALS: RESP 18; TEMP 97.9
--- NOTE | 2018-10-05 09:41 | ED PDOC ---
Arrival/HPI - General Chief Complaint: Hip Pain Time Seen by Provider: 10/05/18 08:48 Historian: Patient - History of Present Illness Narrative History of Present Illness (Text): 10/05/18 09:29 53 year old F with pmh of fibromyalgia and sciatica presents with chief complaint of right sided hip pain radiating down right leg x2days. Patient reports current pain is worse than last time being diagnosed with sciatica. Patient denies any fall, trauma, bowel or bladder incontinence, saddle anesthesia or lower extremity weakness. Patient mentioned taking Tylenol for pain. Patient denies any fevers, chills, headache, dizziness, chest pain, shortness of breath, dyspnea on exertion, cough, diaphoresis, abdominal pain, nausea, vomiting, diarrhea, neck pain, or any other complaint. Time/Duration: < week Symptom Onset: Gradual Symptom Course: Unchanged Activities at Onset: Light Context: Home Past Medical History - Provider Review Nursing Documentation Reviewed: Yes - Infectious Disease Hx of Infectious Diseases: None - Tetanus Immunization Tetanus Immunization: Unknown - Reproductive Menopause: Yes - Past Medical History Past Medical History: No Previous - Cardiac Hx Cardiac Disorders: No - Pulmonary Hx Respiratory Disorders: No - Neurological Hx Neurological Disorder: No - HEENT Hx HEENT Disorder: Yes (eyeglasses) - Renal Hx Renal Disorder: No - Endocrine/Metabolic Hx Endocrine Disorders: No - Hematological/Oncological Hx Blood Disorders: No - Integumentary Hx Dermatological Disorder: No - Musculoskeletal/Rheumatological Hx Arthritis: Yes Other/Comment: myalgia - Gastrointestinal Hx Gastrointestinal Disorders: Yes (obese) Hx Gall Bladder Disease: Yes (gallstones) - Genitourinary/Gynecological Hx Genitourinary Disorders: No - Psychiatric Hx Psychophysiologic Disorder: No Hx Depression: No Hx Emotional Abuse: No Hx Physical Abuse: No Hx Substance Use: No - Past Surgical History Past Surgical History: No Previous - Surgical History Hx Section: Yes (x3) - Anesthesia Hx Anesthesia: Yes Hx Anesthesia Reactions: No Hx Malignant Hyperthermia: No - Suicidal Assessment Feels Threatened In Home Enviroment: No Family/Social History - Physician Review Nursing Documentation Reviewed: Yes Family/Social History: Unknown Family HX Smoking Status: Light Smoker < 10 Cigarettes Daily Hx Alcohol Use: Yes Hx Substance Use: No Hx Substance Use Treatment: No Allergies/Home Meds Allergies/Adverse Reactions: Allergies codeine Allergy (Verified 11/01/17 09:14) SWELLING Sulfa (Sulfonamide Antibiotics) Allergy (Verified 11/01/17 09:14) ANAPHYLAXIS Review of Systems - Physician Review All systems were reviewed & negative as marked: Yes - Review of Systems Constitutional: absent: Fevers ENT: absent: Sore Throat, Rhinorrhea Respiratory: absent: SOB, Cough Cardiovascular: absent: Chest Pain Gastrointestinal: absent: Abdominal Pain, Stool Changes, Constipation, Diarrhea, Nausea, Vomiting Genitourinary Female: absent: Dysuria, Frequency, Hematuria Musculoskeletal: Other (right hip pain radiating down right leg). absent: Back Pain, Joint Swelling Skin: absent: Rash Neurological: absent: Headache, Dizziness Physical Exam Vital Signs Reviewed: Yes Vital Signs Temp Pulse Resp BP Pulse Ox 10/05/18 08:39 97.9 F 87 18 141/94 H 97 Temperature: Afebrile Blood Pressure: Hypertensive Pulse: Regular Respiratory Rate: Normal Appearance: Positive for: Well-Appearing, Non-Toxic, Comfortable Pain Distress: Mild Mental Status: Positive for: Alert and Oriented X 3 - Systems Exam Head: Present: Atraumatic, Normocephalic Pupils: Present: PERRL Extroacular Muscles: Present: EOMI Conjunctiva: Present: Normal Mouth: Present: Moist Mucous Membranes Neck: Present: Normal Range of Motion Respiratory/Chest: Present: Clear to Auscultation, Good Air Exchange. No: Respiratory Distress, Accessory Muscle Use Cardiovascular: Present: Regular Rate and Rhythm, Normal S1, S2. No: Murmurs Abdomen: No: Tenderness, Distention, Peritoneal Signs Back: Present: Normal Inspection. No: Midline Tenderness, Pain with Leg Raise Upper Extremity: Present: Normal Inspection. No: Cyanosis, Edema Lower Extremity: Present: NORMAL PULSES, Tenderness (tenderness to right PSIS). No: Edema, Swelling, Erythema Neurological: Present: GCS=15, CN II-XII Intact, Speech Normal, Motor Func Grossly Intact, Normal Sensory Function, Normal Cerebellar Funct, Norm Deep Tendon Reflexes, Gait Normal Skin: Present: Warm, Dry, Normal Color. No: Rashes Psychiatric: Present: Alert, Oriented x 3, Normal Insight, Normal Concentration Medical Decision Making ED Course and Treatment: 10/05/18 09:41 Impression: 53 year old F presents with chief complaint of right sided hip pain radiating down right leg x2days. Patient reports current pain is worse than last time being diagnosed with sciatica. Patient denies any fall or trauma. Patient denies any bowel or bladder incontinence, saddle anesthesia or lower extremity weakness. Plan: -- Valium -- Toradol -- Reassess and disposition Prior Visits: Notes and results from previous visits were reviewed. Progress Notes: 10/05/18 11:35 Patient reassessed, feels better. Prescribed Toradol. Cautioned about not driving while on Valium. - Scribe Statement The provider has reviewed the documentation as recorded by the Austin Vilchis All medical record entries made by the Scribe were at my direction and personally dictated by me. I have reviewed the chart and agree that the record accurately reflects my personal performance of the history, physical exam, medical decision making, and the department course for this patient. I have also personally directed, reviewed, and agree with the discharge instructions and disposition. Disposition/Present on Arrival - Present on Arrival Any Indicators Present on Arrival: No History of DVT/PE: No History of Uncontrolled Diabetes: No Urinary Catheter: No History of Decub. Ulcer: No History Surgical Site Infection Following: None - Disposition Have Diagnosis and Disposition been Completed?: Yes Diagnosis: Lumbar radiculopathy, right Disposition: HOME/ ROUTINE Disposition Time: 11:37 Patient Plan: Discharge Condition: IMPROVED Discharge Instructions (ExitCare): Radiculopathy (DC) Additional Instructions: DANI RANGEL, thank you for letting us take care of you today. Your provider was Hilaria Alfonso MD and you were treated for hip pain ( right side). The emergency medical care you received today was directed at your acute symptoms. If you were prescribed any medication, please fill it and take as directed. It may take several days for your symptoms to resolve. Return to the Emergency Department if your symptoms worsen, do not improve, or if you have any other problems. Please contact your doctor or call one of the physicians/clinics you have been referred to that are listed on the Patient Visit Information form that is included in your discharge packet. Bring any paperwork you were given at discharge with you along with any medications you are taking to your follow up visit. Our treatment cannot replace ongoing medical care by a primary care provider outside of the emergency department. Thank you for allowing the [facility] team to be part of your care today. Prescriptions: diaZEpam [Valium] 5 mg PO TID PRN #15 tab PRN Reason: Muscle Spasm Ketorolac Tromethamine [Toradol] 10 mg PO Q6H PRN #20 tab PRN Reason: Pain, Severe (8-10) Referrals: [facility] [Outside] - Follow up with primary [facility] [place] [Outside] - Follow up with primary Della Mix MD [Medical Doctor] - Follow up with primary Forms: [employer] (Turkish)
[2018-10-05 12:10] VITALS: BP 142/87; PULSE 82; O2SAT 98
== END 2018-10-05 12:10 | disposition home or self-care (01) ==
LOC: ED 08:38
DX: M54.16 Radiculopathy, lumbar region (principal)
CPT/HCPCS: 81025; 96372; 99284; J1885